=== PATIENT | male | born 1980 | race Hispanic/Latino ===

== ENCOUNTER 2016-12-11 08:00 | Emergency (ER) | payer SELFPAY ==
[2016-12-11 08:07] VITALS: RESP 18; TEMP 97.5
--- NOTE | 2016-12-11 08:33 | C.PDOC ---
History Of Present Illness 36 yo male c/o left thumb pain s/p fall on it yesterday. Pt notes that he was playing softball, had his catchers glove on, and landed on his left hand. No change in sensation. Right hand dominant. Time Seen by Provider: 12/11/16 08:11 Chief Complaint (Nursing): Finger,Hand,&Wrist History Per: Patient History/Exam Limitations: no limitations Onset/Duration Of Symptoms: Days (yesterday) Past Medical History Vital Signs: Last Vital Signs Temp 97.5 F L 12/11/16 08:05 Pulse 58 L 12/11/16 09:10 Resp 18 12/11/16 09:10 BP 127/82 12/11/16 09:10 Pulse Ox 98 12/11/16 09:10 - [facility] Procedures APPLICATION OF SPLINT (01/04/14) CLOSURE SKIN & SUBCUTANEOUS NEC (02/27/03) Family History: States: Unknown Family Hx - Social History Hx Tobacco Use: No Hx Alcohol Use: No Hx Substance Use: No - Immunization History Hx Tetanus Toxoid Vaccination: No Hx Influenza Vaccination: No Hx Pneumococcal Vaccination: No Review Of Systems Except As Marked, All Systems Reviewed And Found Negative. Musculoskeletal: Positive for: Hand Pain Physical Exam - Physical Exam Appears: Well, Non-toxic, No Acute Distress Skin: Normal Color, Warm, Dry Head: Atraumatic, Normacephalic Eye(s): bilateral: Normal Inspection, EOMI Nose: Normal Oral Mucosa: Moist Neck: Normal, Normal ROM, Supple Chest: Symmetrical Respiratory: No Accessory Muscle Use Extremity: Normal ROM, Tenderness (Left thumb MCP with swelling), Capillary Refill (< 2 sec), Swelling Extremity: Bilateral: Normal ROM Pulses: Left Radial: Normal, Right Radial: Normal Neurological/Psych: Oriented x3, Normal Speech, Normal Motor, Normal Sensation ED Course And Treatment O2 Sat by Pulse Oximetry: 95 - Other Rad Thumb XR X-Ray: Viewed By Me, Read By Radiologist Interpretation: PROCEDURE: Left Thumb radiographs. HISTORY: trauma. COMPARISON: None available. TECHNIQUE: AP radiograph of the left hand, as well as spot oblique and lateral images of thumb were obtained. FINDINGS: LEFT THUMB: Unremarkable left 1st digit without acute displaced fracture. Remainder of the left hand (as seen on the AP view) grossly unremarkable. JOINTS: No dislocation. SOFT TISSUES: Soft tissue swelling. No evidence of radiopaque foreign body. OTHER FINDINGS: None. IMPRESSION: Soft tissue swelling. No acute displaced fracture or dislocation identified. If symptoms persist or if there is continued clinical concern, x-ray follow-up in 7-10 days should be considered. Progress Note: Jeffrey dressing applied by RN. Instructed RICE and to follow up with ortho in 1-2 days. Disposition - Disposition Referrals: Miguel Daigle MD [Staff Provider] - Disposition: HOME/ ROUTINE Disposition Time: 08:36 Condition: STABLE Additional Instructions: Rest, ice and elevate. Follow up with bone doctor in 1-2 days. Return to ER if symptoms persist or worsen. Instructions: Finger Sprain (ED) Forms: [facility] (Upper Sorbian), Work Excuse - Clinical Impression Clinical Impression: Thumb sprain
--- NOTE | 2016-12-11 09:04 | RAD ---
PROCEDURE: Left Thumb radiographs. HISTORY: trauma COMPARISON: None available. TECHNIQUE: AP radiograph of the left hand, as well as spot oblique and lateral images of thumb were obtained. FINDINGS: LEFT THUMB: Unremarkable left 1st digit without acute displaced fracture. Remainder of the left hand (as seen on the AP view) grossly unremarkable. JOINTS: No dislocation. SOFT TISSUES: Soft tissue swelling. No evidence of radiopaque foreign body. OTHER FINDINGS: None. IMPRESSION: Soft tissue swelling. No acute displaced fracture or dislocation identified. If symptoms persist or if there is continued clinical concern, x-ray follow-up in 7-10 days should be considered.
[2016-12-11 09:11] VITALS: BP 127/82; PULSE 58
[2016-12-11 09:21] VITALS: O2SAT 95
== END 2016-12-11 09:12 | disposition home or self-care (01) ==
LOC: C.ER 08:00
DX: S63.602A Unspecified sprain of left thumb, initial encounter (principal); X58.XXXA Exposure to other specified factors, initial encounter; Y93.64 Activity, baseball

== ENCOUNTER 2017-05-12 09:03 | Emergency (ER) | payer OTHER ==
[2017-05-12 09:13] VITALS: RESP 18; TEMP 98; O2SAT 95
[2017-05-12 09:49] VITALS: BP 128/93; PULSE 88
--- NOTE | 2017-05-12 09:49 | RAD ---
HISTORY: COUGH COMPARISON: Chest x-ray performed 02/16/15 TECHNIQUE: Chest PA and lateral FINDINGS: Examination limited by habitus and hypoinflation. LUNGS: No focal consolidation. Please note that chest x-ray has limited sensitivity for the detection of pulmonary masses. PLEURA: No significant pleural effusion identified. No definite pneumothorax . CARDIOVASCULAR: Heart size appears within normal limits. OSSEOUS STRUCTURES: Degenerative changes of the spine. VISUALIZED UPPER ABDOMEN: Unremarkable. OTHER FINDINGS: None. IMPRESSION: No focal consolidation, significant pleural effusion, or definite pneumothorax identified.
--- NOTE | 2017-05-12 10:10 | C.PDOC ---
Time Seen by Provider: 05/12/17 09:23 Chief Complaint (Nursing): Chest Pain Past Medical History Vital Signs: Last Vital Signs Temp 98 F 05/12/17 09:07 Pulse 75 05/12/17 09:07 Resp 18 05/12/17 09:07 BP 143/91 H 05/12/17 09:07 Pulse Ox 95 05/12/17 09:07 - [facility] Procedures APPLICATION OF SPLINT (01/04/14) CLOSURE SKIN & SUBCUTANEOUS NEC (02/27/03) Family History: States: Unknown Family Hx - Social History Hx Tobacco Use: No Hx Alcohol Use: No Hx Substance Use: No - Immunization History Hx Tetanus Toxoid Vaccination: No Hx Influenza Vaccination: No Hx Pneumococcal Vaccination: No ED Course And Treatment O2 Sat by Pulse Oximetry: 95 Disposition - Disposition
--- NOTE | 2017-05-12 10:17 | C.PDOC ---
History Of Present Illness 36-year-old male, presents to the emergency department with complaints of cough , cold and congestion ongoing for the past week. Patient states he had mild epigastric pain and has been coughing all night, that is associated with green sputum. Patient is a non smoker. Denies nausea/vomiting, fevers, chills, chest pain, nausea/vomiting, dizziness, or any other associated symptoms. No other complaints at this time. Time Seen by Provider: 05/12/17 09:23 Chief Complaint (Nursing): Chest Pain History Per: Patient History/Exam Limitations: no limitations Onset/Duration Of Symptoms: Days Current Symptoms Are (Timing): Still Present Past Medical History Reviewed: Historical Data, Nursing Documentation, Vital Signs Vital Signs: Last Vital Signs Temp 98 F 05/12/17 09:07 Pulse 88 05/12/17 09:24 Resp 18 05/12/17 09:07 BP 128/93 H 05/12/17 09:24 Pulse Ox 95 05/12/17 12:38 - [facility] Procedures APPLICATION OF SPLINT (01/04/14) CLOSURE SKIN & SUBCUTANEOUS NEC (02/27/03) Family History: States: No Known Family Hx - Social History Hx Tobacco Use: No Hx Alcohol Use: No Hx Substance Use: No - Immunization History Hx Tetanus Toxoid Vaccination: No Hx Influenza Vaccination: No Hx Pneumococcal Vaccination: No Review Of Systems Except As Marked, All Systems Reviewed And Found Negative. Constitutional: Negative for: Fever, Chills Respiratory: Positive for: Cough, Sputum Gastrointestinal: Positive for: Abdominal Pain (epigastric) Neurological: Negative for: Headache Physical Exam - Physical Exam Appears: Non-toxic, No Acute Distress Skin: Warm, Dry, No Rash Head: Atraumatic, Tenderness (Sinusitis) Eye(s): bilateral: Normal Inspection, PERRL, EOMI Nose: Normal Oral Mucosa: Moist Lips: Normal Appearing Throat: No Erythema, No Exudate (no tonsillar swell) Neck: Normal ROM, Supple Chest: Symmetrical Cardiovascular: Rhythm Regular, No Murmur Respiratory: Normal Breath Sounds, No Accessory Muscle Use Extremity: Normal ROM Neurological/Psych: Oriented x3, Normal Speech ED Course And Treatment O2 Sat by Pulse Oximetry: 95 (on RA) Pulse Ox Interpretation: Normal - Radiology CXR: Interpreted by Me, Viewed By Me Disposition Counseled Patient/Family Regarding: Studies Performed, Diagnosis, Need For Followup, Rx Given - Disposition Referrals: YOUR,PMD [Other] Disposition: HOME/ ROUTINE Disposition Time: 10:15 Condition: IMPROVED Additional Instructions: TAKE SUDAFED 24 HR AND/OR AFRIN DIRECTED Prescriptions: Azithromycin 250 mg PO DAILY #6 tab Benzonatate [Tessalon Perles] 200 mg PO TID PRN #15 sgl PRN Reason: Cough Instructions: Upper Respiratory Infection (ED) Forms: [facility] (Korean) - Clinical Impression Clinical Impression: URTI (acute upper respiratory infection) - Scribe Statement The provider has reviewed the documentation as recorded by the Scribe (Kassidy Daigle) All medical record entries made by the Scribe were at my direction and personally dictated by me. I have reviewed the chart and agree that the record accurately reflects my personal performance of the history, physical exam, medical decision making, and the department course for this patient. I have also personally directed, reviewed, and agree with the discharge instructions and disposition.
--- NOTE | 2017-05-13 23:42 | CARD ---
APPROVED REPORT EKG Measurement Heart [id number] <Conclusion> Normal sinus rhythm Voltage criteria for left ventricular hypertrophy Abnormal ECG
== END 2017-05-12 10:25 | disposition home or self-care (01) ==
LOC: C.ER 09:03
DX: J06.9 Acute upper respiratory infection, unspecified (principal)